=== PATIENT | male | born 1965 ===

== ENCOUNTER → 2018-02-25 | Outpatient (CLI) | payer BC ==
[~2018-02-25] VITALS: Ht 165.1 cm; Wt 114.0 kg
[2018-02-25 10:18] VITALS: BP 154/83
== END | disposition home or self-care (01) ==
LOC: SRCNTR 10:17
PROVIDERS: ATTEND Internal Medicine
DX: R09.02 Hypoxemia (principal); I11.0 Hypertensive heart disease with heart failure; I50.9 Heart failure, unspecified; E11.9 Type 2 diabetes mellitus without complications; E78.5 Hyperlipidemia, unspecified; Z94.0 Kidney transplant status; Z99.81 Dependence on supplemental oxygen; Z88.0 Allergy status to penicillin; Z88.2 Allergy status to sulfonamides; Z88.8 Allergy status to other drugs, medicaments and biological substances
CPT/HCPCS: G0463

== ENCOUNTER → 2018-03-26 | Outpatient (CLI) | payer BC ==
[~2018-03-26] VITALS: Ht 165.1 cm; Wt 114.5 kg
[2018-03-26 11:29] VITALS: BP 160/86
== END | disposition home or self-care (01) ==
LOC: SRCNTR 11:25
PROVIDERS: ATTEND Internal Medicine
DX: I10 Essential (primary) hypertension (principal); R09.02 Hypoxemia; E78.5 Hyperlipidemia, unspecified
CPT/HCPCS: G0463

== ENCOUNTER → 2018-05-01 | Outpatient (CLI) | payer BC ==
[~2018-05-01] VITALS: Ht 165.1 cm; Wt 113.5 kg
[2018-05-01 10:41] VITALS: BP 141/87
== END | disposition home or self-care (01) ==
LOC: SRCNTR 10:18
PROVIDERS: ATTEND Internal Medicine
DX: I27.20 Pulmonary hypertension, unspecified (principal); R09.02 Hypoxemia; G47.30 Sleep apnea, unspecified
CPT/HCPCS: G0463

== ENCOUNTER → 2018-07-14 | Outpatient (CLI) | payer BC ==
[~2018-07-14] VITALS: Ht 165.1 cm; Wt 117.5 kg
[~2018-07-14] MED LIST: ALLO100T PO; AMLO-511 PO; APRE30TA2 PO; ASPI81 PO; CHOL200059 PO; EZET10 PO; FENO160 PO; FURO40 PO; HUMALOG PEG; HYDR-4455 PO; INSLAN SQ; KDUR10 PO; MAGN200T4 PO; METO-558 PO; MULT1TAB70 PO; MYCO360T PO; ONDA4 PO; PREG100C PO; RANI150T7 PO; TACR1 PO
[2018-07-14 10:25] VITALS: BP 127/75
== END | disposition home or self-care (01) ==
LOC: SRCNTR 10:24
PROVIDERS: ATTEND Internal Medicine
DX: G47.33 Obstructive sleep apnea (adult) (pediatric) (principal); E11.9 Type 2 diabetes mellitus without complications; I10 Essential (primary) hypertension; E78.5 Hyperlipidemia, unspecified; R09.02 Hypoxemia; E66.9 Obesity, unspecified; Z94.4 Liver transplant status
CPT/HCPCS: G0463